=== PATIENT | male | born 1980 | race Caucasian/White ===

== ENCOUNTER 2022-08-02 10:26 | Outpatient (REF) | payer OTHER, SELFPAY ==
--- NOTE | ~2022-08-02 | XR_ITS ---
EXAMINATION: X-RAY BILATERAL FEET CLINICAL INFORMATION: Pain COMPARISON: None TECHNIQUE: Right foot 3 views. Left foot 3 views. FINDINGS: Left foot: There is a mildly displaced nonunited fracture of the proximal base of the fifth metatarsal. The appearance is suggestive of a subacute/chronic fracture. The remainder the bones appear intact. Mild degeneration in the dorsal aspect of the midfoot. Posterior calcaneal spur. No erosions. No abnormal soft tissue calcification. Right foot: No visible acute fracture or dislocation. Tarsometatarsal alignment is maintained. Mild first TMT arthritis. Toes are flexed in positioning limiting joint space evaluation. There is dorsal degenerative spurring in the midfoot, as seen on the lateral projection, including at the talonavicular, navicular-cuneiform joints. Small posterior calcaneal spur. XR/XR foot LT min 3V IMPRESSION: Left foot: Nonunited mildly displaced proximal fifth metatarsal base fracture. This could be subacute or chronic. Mild degenerative changes as above. Right foot: No acute findings. Osteoarthritis as above..
--- NOTE | ~2022-08-02 | XR_ITS ---
EXAMINATION: X-RAY BILATERAL FEET CLINICAL INFORMATION: Pain COMPARISON: None TECHNIQUE: Right foot 3 views. Left foot 3 views. FINDINGS: Left foot: There is a mildly displaced nonunited fracture of the proximal base of the fifth metatarsal. The appearance is suggestive of a subacute/chronic fracture. The remainder the bones appear intact. Mild degeneration in the dorsal aspect of the midfoot. Posterior calcaneal spur. No erosions. No abnormal soft tissue calcification. Right foot: No visible acute fracture or dislocation. Tarsometatarsal alignment is maintained. Mild first TMT arthritis. Toes are flexed in positioning limiting joint space evaluation. There is dorsal degenerative spurring in the midfoot, as seen on the lateral projection, including at the talonavicular, navicular-cuneiform joints. Small posterior calcaneal spur. XR/XR foot RT min 3V IMPRESSION: Left foot: Nonunited mildly displaced proximal fifth metatarsal base fracture. This could be subacute or chronic. Mild degenerative changes as above. Right foot: No acute findings. Osteoarthritis as above..
--- NOTE | ~2022-08-02 | XR_ITS ---
EXAMINATION: X-RAY BILATERAL WRIST CLINICAL INFORMATION: Pain COMPARISON: None TECHNIQUE: Right elbow 3 views. Left Elbow 3 views. FINDINGS: Left elbow: No fracture or dislocation. Normal alignment. Joint space is maintained. No significant effusion. Moderate olecranon enthesopathy at the triceps insertion. Mild posterior soft tissue swelling. Right elbow: No fracture or dislocation. Normal alignment. Joint spaces are maintained. No significant effusion. Moderate lobulated calcification/ossification posterior to the olecranon process in the region of the triceps tendon insertion. This could reflect enthesopathy, dystrophic changes. Differential consideration include crystalline disease. XR/XR elbow LT min 3V IMPRESSION: Left elbow: No acute osseous abnormality. Right elbow: No acute osseous abnormality. Calcification/ossification posterior to the olecranon process could reflect enthesopathy, dystrophic changes, crystalline disease
--- NOTE | ~2022-08-02 | XR_ITS ---
EXAMINATION: XR HIP, RIGHT XR HIP, LEFT CLINICAL INFORMATION: Pain COMPARISON: None TECHNIQUE: Left hip 2 views. Right hip 2 views. FINDINGS: Left Hip: Normal alignment. Hip joint space is maintained. There is bony irregularity and chronic ossifications along the lateral acetabulum, could be related to prior trauma, dystrophic changes or arthritis. There is slight flattening of the articular surface of the femoral head. Apparent increased density/sclerosis in the femoral head could be related to overlapping densities, but findings raise a possibility of avascular necrosis. No acute fracture or dislocation is seen. Visualized left hemipelvis appears intact. Right Hip: No fracture or dislocation. Hip joint space is maintained. Mild lateral acetabular hypertrophy/spurring suggesting mild arthritis. Visualized right hemipelvis is intact. XR/XR hip LT min 2V IMPRESSION: Left Hip: Findings along the lateral acetabulum could be related to prior trauma, dystrophic ossification, arthritis. Apparent increased density and femoral head articular surface flattening raises the possibility of avascular necrosis. Consider further evaluation with MRI. Right Hip: Mild arthritis.
--- NOTE | ~2022-08-02 | XR_ITS ---
EXAMINATION: X-RAY BILATERAL WRIST CLINICAL INFORMATION: Pain COMPARISON: None TECHNIQUE: Right elbow 3 views. Left Elbow 3 views. FINDINGS: Left elbow: No fracture or dislocation. Normal alignment. Joint space is maintained. No significant effusion. Moderate olecranon enthesopathy at the triceps insertion. Mild posterior soft tissue swelling. Right elbow: No fracture or dislocation. Normal alignment. Joint spaces are maintained. No significant effusion. Moderate lobulated calcification/ossification posterior to the olecranon process in the region of the triceps tendon insertion. This could reflect enthesopathy, dystrophic changes. Differential consideration include crystalline disease. XR/XR elbow RT min 3V IMPRESSION: Left elbow: No acute osseous abnormality. Right elbow: No acute osseous abnormality. Calcification/ossification posterior to the olecranon process could reflect enthesopathy, dystrophic changes, crystalline disease
--- NOTE | ~2022-08-02 | XR_ITS ---
EXAMINATION: XR LUMBOSACRAL SPINE WITH OBLIQUES CLINICAL INFORMATION: Low back pain. COMPARISON: None TECHNIQUE: AP, both oblique, and lateral views of the lumbar spine. Lateral view of the lumbosacral junction. FINDINGS: There is maintained lumbar lordosis. The vertebral heights and alignment is normal. There is loss of L3-L4 disc height. Rest of the disc heights are maintained normal. There is moderate ventral spondylosis L3-L4, L2-L3 and minimal spondylosis L1-L2 disc levels. No visible acute fracture or dislocation seen. XR/XR lumbar spine 4V min IMPRESSION: Mild degenerative disc changes L3-L4 disc levels with moderate ventral spondylosis. No visible acute fracture or dislocation seen.
--- NOTE | ~2022-08-02 | XR_ITS ---
EXAMINATION: XR SACROILIAC JOINTS CLINICAL INFORMATION: Low back pain COMPARISON: None TECHNIQUE: 4 views of the sacroiliac joints FINDINGS: Mild bilateral SI joint arthritis, right slightly more prominent as compared to the left. There is sclerosis marginating the SI joints. No definite erosive changes. No acute fractures seen. XR/XR sacroiliac joint 1-2V IMPRESSION: Mild bilateral SI joint arthritis, right greater than left.
--- NOTE | ~2022-08-02 | XR_ITS ---
EXAMINATION: XR HIP, RIGHT XR HIP, LEFT CLINICAL INFORMATION: Pain COMPARISON: None TECHNIQUE: Left hip 2 views. Right hip 2 views. FINDINGS: Left Hip: Normal alignment. Hip joint space is maintained. There is bony irregularity and chronic ossifications along the lateral acetabulum, could be related to prior trauma, dystrophic changes or arthritis. There is slight flattening of the articular surface of the femoral head. Apparent increased density/sclerosis in the femoral head could be related to overlapping densities, but findings raise a possibility of avascular necrosis. No acute fracture or dislocation is seen. Visualized left hemipelvis appears intact. Right Hip: No fracture or dislocation. Hip joint space is maintained. Mild lateral acetabular hypertrophy/spurring suggesting mild arthritis. Visualized right hemipelvis is intact. XR/XR hip RT min 2V IMPRESSION: Left Hip: Findings along the lateral acetabulum could be related to prior trauma, dystrophic ossification, arthritis. Apparent increased density and femoral head articular surface flattening raises the possibility of avascular necrosis. Consider further evaluation with MRI. Right Hip: Mild arthritis.
== END 2022-08-02 10:27 | disposition home or self-care (01) ==
LOC: HO.XRAY 10:26
PROVIDERS: PCP Internal Medicine; Visit Provider Student in an Organized Health Care Education/Training Program
DX: M25.552 Pain in left hip (principal); M25.551 Pain in right hip; M54.50 Low back pain, unspecified; M10.9 Gout, unspecified; M79.671 Pain in right foot; M79.672 Pain in left foot; M25.521 Pain in right elbow; M25.522 Pain in left elbow
CPT/HCPCS: 72110; 72200; 73080; 73502; 73630

== ENCOUNTER 2022-08-08 12:57 | Outpatient (REF) | payer OTHER, SELFPAY ==
[2022-08-08 13:21] LABS: MANUAL DIFF FLAG NO
[2022-08-08 14:00] LABS: Basophils Absolute Auto 0.1 X10*3/uL (0.0-0.2); Basophils Percent Auto 0.5 % (0-2); Eosinophils Absolute Auto 0.2 X10*3/uL (0.0-0.4); Eosinophils Percent Auto 1.8 % (0-4); Hematocrit 40.7 % (42.0-52.0); Hemoglobin 13.8 g/dl (14.0-18.0); Imm Gran Abs Auto 0.04 X10*3/uL (0.00-0.03); Imm Gran Pct Auto 0.4 % (0.0-0.4); Lymphocytes Percent Auto 19.5 % (20-40); Mean Corpuscular HGB Conc 33.9 g/dl (31.0-36.0); Mean Corpuscular Hemoglobin 33.1 pg (27.0-33.0); Mean Corpuscular Volume 97.6 fL (80.0-98.0); Mean Platelet Volume 10.1 fL (9.4-12.4); Monocytes Percent Auto 9.7 % (2-11); Neutrophils Percent Auto 68.1 % (45-73); Platelet Count 229 X10*3/uL (160-400); Red Blood Count 4.17 X10*6/uL (4.60-5.80); Red Cell Distribution Width 13.6 % (11.0-16.0); White Blood Count 10.3 X10*3/uL (4.8-10.8)
[2022-08-08 14:28] LABS: Alanine Aminotransferase 23 U/L (0-40); Albumin Level 4.3 g/dL (3.5-5.0); Alkaline Phosphatase 75 U/L (39-117); Anion Gap 19 (12-20); Aspartate Amino Transferase 18 U/L (5-37); Bilirubin Total 0.6 mg/dL (0.0-1.0); Blood Urea Nitrogen 21 mg/dL (9-16); C Reactive Protein 7.89 mg/dL (< or = 0.50); Calcium 9.5 mg/dL (8.4-10.2); Carbon Dioxide 26 mmol/L (22-29); Chloride 99 mmol/L (96-108); Estimated Glomerular Filt Rate > 60; Glucose Random 85 mg/dL (60-115); Potassium 3.6 mmol/L (3.3-5.1); Rheumatoid Factor < 15.0 IU/mL (<15.0); Sodium 140 mmol/L (135-145); Total Protein 7.2 g/dL (6.5-8.0); Uric Acid 6.8 mg/dL (3.4-7.0)
[2022-08-08 14:36] LABS: TSH reflex Free T4 1.66 uIU/mL (0.32-4.0)
[2022-08-08 14:56] LABS: Appearance Urine Clear; Color Urine Yellow; Glucose Urine UA Negative (Negative); Leukocyte Esterase Urine Trace (Negative); Nitrite Urine Negative (Negative); PH 5.5 (5.0-9.0); Specific Gravity - Urine 1.025 (1.005-1.025); UMIC TRIGGER UA YES; Urine Blood Negative (Negative); Urine Ketones Trace mg/dL (Negative); Urine Protein Negative (Neg-Trace)
[2022-08-08 14:59] LABS: Bacteria Urine None Seen (None Seen); Hyaline Casts Urine 0-2 /LPF (0-2); RBC Urine 0-2 /HPF (0-2); Squamous Epithelial Cell Urine 0-2 /HPF (0-2); WBC Urine 0-5 /HPF (0-5)
[2022-08-08 15:14] LABS: Erythrocyte Sedimentation Rate 20 MM/HR (0-15)
[2022-08-09 04:05] LABS: HBS Num1 0.49 mIU/mL (0-7.99); HBc Num1 0.04 S/CO (0.00-0.79); HBsAGNum1 0.27 S/CO (0.00-0.99); Hepatitis A Antibody IgM 0.19 Index (0-0.79); Hepatitis B Core Antibody Nonreactive (Nonreactive); Hepatitis B Surface Antigen Negative (Negative); ~HepC Num1 0.11 S/CO (0.00-0.79); ~Hepatitis A Antibody IgM Nonreactive (Nonreactive); ~Hepatitis B Surface Antibody NONREACTIVE (Nonreactive); ~Hepatitis C Antibody Nonreactive (Nonreactive)
[2022-08-11 14:32] LABS: Cyclic Citrullinated Peptide <16 UNITS
[2022-08-12 12:21] LABS: HLA B27 Negative (Negative)
== END 2022-08-08 12:58 | disposition home or self-care (01) ==
LOC: HO.LAB 12:57
PROVIDERS: PCP Internal Medicine; Visit Provider Student in an Organized Health Care Education/Training Program
DX: Z11.59 Encounter for screening for other viral diseases (principal); M54.50 Low back pain, unspecified; M25.522 Pain in left elbow; R63.5 Abnormal weight gain; M10.9 Gout, unspecified
CPT/HCPCS: 36415; 80053; 81001; 84443; 84550; 85025; 85652; 86140; 86200; 86431; 86704; 86706; 86709; 86803; 86812; 87340

== ENCOUNTER 2022-09-06 08:04 | Outpatient (REF) | payer OTHER, SELFPAY ==
--- NOTE | ~2022-09-06 | MR_ITS ---
EXAMINATION: MR HIP WITHOUT CONTRAST, LEFT CLINICAL INFORMATION: Lower back pain. Bilateral hip pain. Left leg pain and numbness. COMPARISON: Left hip radiographs dated 08/02/2022. Left hip MRI dated 11/02/2020. TECHNIQUE: MRI of the left hip was obtained using routine sequences on a high-field magnet. FINDINGS: ACETABULAR LABRUM: Redemonstration of fluid extending through the undersurface of the significantly irregular anterosuperior labrum. Corticated ossifications again noted along the lateral acetabulum with posterosuperior capsular thickening and edema. Findings are similar when compared to the prior examination. ARTICULAR CARTILAGE/BONE: Full-thickness articular cartilage loss at the superior acetabulum with underlying subchondral cystic change. Marginal osteophytes and corticated ossifications appear unchanged. Shallow acetabulum and mild flattening of the femoral head, unchanged when compared to the prior examination. No acute stress reaction, fracture, or avascular necrosis. No concerning lytic or blastic osseous lesion. MUSCLES/TENDONS: Fluid along the undersurface of the proximal left hamstring tendon, unchanged and consistent with chronic partial tearing. JOINT FLUID/BURSA: Within normal limits. INTRAPELVIC STRUCTURES: Unremarkable. 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 Corticated ossifications again noted along the lateral acetabulum, unchanged. Chronic undersurface tearing of the anterosuperior labrum, unchanged posterosuperior capsular thickening/edema, similar when compared to the prior examination. Chronic partial tearing of the proximal left hamstring tendon, unchanged.
--- NOTE | ~2022-09-06 | MR_ITS ---
EXAMINATION: MR SACROILIAC JOINTS WITHOUT CONTRAST, BILATERAL CLINICAL INFORMATION: Low back pain. COMPARISON: Radiographs 08/02/2022. TECHNIQUE: MRI without contrast is performed on the sacroiliac joints. FINDINGS: [id number] osteoarthritis of the sacroiliac joints. No definite ankylosis. No joint effusion, marrow edema, or other evidence to suggest an inflammatory sacroiliitis. Multilevel degenerative disc disease of the visualized lumbar spine with possible disc sequestration posterior to the L5 vertebral body on the left, and central stenosis at L3-L4 which could be better evaluated with a lumbar spine MRI. Abnormal left hip findings are dictated with a separate report. MR/MR sacroiliac joint EDILSON wo con IMPRESSION: 1. [id number] osteoarthritis of the sacroiliac joints. No evidence of an inflammatory sacroiliitis. 2. Multilevel degenerative disc disease of the visualized lumbar spine with possible disc sequestration posterior to the L5 vertebral body and central stenosis at L3-L4 which could be better evaluated with a lumbar spine MRI.
== END 2022-09-06 08:05 | disposition home or self-care (01) ==
LOC: HO.MRI 08:04
PROVIDERS: Visit Provider Student in an Organized Health Care Education/Training Program
DX: M54.50 Low back pain, unspecified (principal); G89.29 Other chronic pain; M25.552 Pain in left hip
CPT/HCPCS: 72195; 73721

== ENCOUNTER 2022-12-04 10:34 | Outpatient (REF) | payer OTHER, SELFPAY ==
--- NOTE | ~2022-12-04 | XR_ITS ---
EXAMINATION: XR CHEST CLINICAL INFORMATION: Fracture of one rib COMPARISON: None TECHNIQUE: 2 views of the chest were obtained. FINDINGS: The cardiomediastinal silhouette is within normal limits. The lungs are well expanded. There is no focal consolidation, edema, or effusion. No pneumothorax. No acute displaced rib fractures seen.. Thoracic spine degeneration. XR/XR chest 2V IMPRESSION: No evidence of acute pulmonary process.
--- NOTE | ~2022-12-04 | XR_ITS ---
EXAMINATION: X-RAY BILATERAL SHOULDERS CLINICAL INFORMATION: Arthropathy COMPARISON: None TECHNIQUE: Left shoulder 4 views. Right shoulder 5 views. FINDINGS: Left shoulder: Moderate acromioclavicular arthritis. Glenohumeral joint space is maintained. No fracture or dislocation. No abnormal soft tissue calcification. Right shoulder: Moderate acromioclavicular arthritis. Glenohumeral alignment and joint space is maintained. No acute fracture or dislocation. Apparent focus of mixed lucency and sclerosis in the humeral neck measuring 3 x 2.4 cm. No abnormal soft tissue calcification. XR/XR shoulder RT min 2V IMPRESSION: Left shoulder: Moderate acromioclavicular arthritis. Right shoulder: Moderate acromioclavicular arthritis. There appears be a lesion in the proximal humeral neck measuring 3 x 2.0 cm. Further evaluation with MRI without and with contrast, as clinically warranted.
--- NOTE | ~2022-12-04 | XR_ITS ---
EXAMINATION: XR RIBS, BILATERAL CLINICAL INFORMATION: Rib pain COMPARISON: None TECHNIQUE: 3 views of the bilateral ribs were obtained. FINDINGS: Lungs are clear. No consolidation, pneumothorax, or pleural effusion. The cardiomediastinal silhouette and pulmonary vasculature are normal. Osseous structures are unremarkable. Ribs are intact. No fractures are identified. Metallic BB is marked over the right anterior 10th rib XR/XR ribs BI 3V IMPRESSION: Unremarkable examination.
--- NOTE | ~2022-12-04 | XR_ITS ---
EXAMINATION: X-RAY BILATERAL SHOULDERS CLINICAL INFORMATION: Arthropathy COMPARISON: None TECHNIQUE: Left shoulder 4 views. Right shoulder 5 views. FINDINGS: Left shoulder: Moderate acromioclavicular arthritis. Glenohumeral joint space is maintained. No fracture or dislocation. No abnormal soft tissue calcification. Right shoulder: Moderate acromioclavicular arthritis. Glenohumeral alignment and joint space is maintained. No acute fracture or dislocation. Apparent focus of mixed lucency and sclerosis in the humeral neck measuring 3 x 2.4 cm. No abnormal soft tissue calcification. XR/XR shoulder LT min 2V IMPRESSION: Left shoulder: Moderate acromioclavicular arthritis. Right shoulder: Moderate acromioclavicular arthritis. There appears be a lesion in the proximal humeral neck measuring 3 x 2.0 cm. Further evaluation with MRI without and with contrast, as clinically warranted.
[2022-12-04 10:49] LABS: MANUAL DIFF FLAG NO
[2022-12-04 11:01] LABS: Basophils Absolute Auto 0.1 X10*3/uL (0.0-0.2); Basophils Percent Auto 1.1 % (0-2); Eosinophils Absolute Auto 0.1 X10*3/uL (0.0-0.4); Hematocrit 41.2 % (42.0-52.0); Hemoglobin 13.9 g/dl (14.0-18.0); Imm Gran Abs Auto 0.02 X10*3/uL (0.00-0.03); Imm Gran Pct Auto 0.3 % (0.0-0.4); Lymphocytes Absolute Auto 1.8 X10*3/uL (1.2-4.9); Lymphocytes Percent Auto 27.8 % (20-40); Mean Corpuscular HGB Conc 33.7 g/dl (31.0-36.0); Mean Corpuscular Hemoglobin 32.1 pg (27.0-33.0); Mean Corpuscular Volume 95.2 fL (80.0-98.0); Mean Platelet Volume 9.3 fL (9.4-12.4); Monocytes Absolute Auto 0.6 X10*3/uL (0.1-1.2); Monocytes Percent Auto 8.6 % (2-11); Neutrophils Percent Auto 60.2 % (45-73); Platelet Count 223 X10*3/uL (160-400); Red Blood Count 4.33 X10*6/uL (4.60-5.80); Red Cell Distribution Width 13.6 % (11.0-16.0); White Blood Count 6.6 X10*3/uL (4.8-10.8)
[2022-12-04 11:35] LABS: Alanine Aminotransferase 24 U/L (0-40); Albumin Level 4.3 g/dL (3.5-5.0); Alkaline Phosphatase 64 U/L (39-117); Anion Gap 13 (12-20); Aspartate Amino Transferase 23 U/L (5-37); Bilirubin Total 0.4 mg/dL (0.0-1.0); Blood Urea Nitrogen 12 mg/dL (9-16); Calcium 9.3 mg/dL (8.4-10.2); Carbon Dioxide 27 mmol/L (22-29); Chloride 106 mmol/L (96-108); Estimated Glomerular Filt Rate > 60; Glucose Random 108 mg/dL (60-115); Potassium 3.9 mmol/L (3.3-5.1); Sodium 142 mmol/L (135-145); Total Protein 7.1 g/dL (6.5-8.0)
== END 2022-12-04 10:35 | disposition home or self-care (01) ==
LOC: HO.LAB 10:34
PROVIDERS: PCP Internal Medicine; Visit Provider Student in an Organized Health Care Education/Training Program
DX: M10.9 Gout, unspecified (principal); S22.39XA Fracture of one rib, unspecified side, initial encounter for closed fracture; M12.811 Other specific arthropathies, not elsewhere classified, right shoulder; M12.812 Other specific arthropathies, not elsewhere classified, left shoulder; X58.XXXA Exposure to other specified factors, initial encounter; Y93.9 Activity, unspecified; Y92.89 Other specified places as the place of occurrence of the external cause; Y99.9 Unspecified external cause status
CPT/HCPCS: 36415; 71046; 71110; 73030; 80053; 82550; 84550; 85025

== ENCOUNTER → 2022-12-06 07:33 | Outpatient (BNVA) | payer OTHER, SELFPAY | PROVIDERS: Visit Provider Student in an Organized Health Care Education/Training Program | DX: M19.011 Primary osteoarthritis, right shoulder (principal); M10.9 Gout, unspecified | CPT/HCPCS: 20610; J3301 ==

== ENCOUNTER 2022-12-26 16:31 | Outpatient (REF) | payer OTHER, SELFPAY ==
--- NOTE | ~2022-12-26 | MR_ITS ---
EXAMINATION: MR SHOULDER WITHOUT AND WITH CONTRAST, RIGHT CLINICAL INFORMATION: Right shoulder pain, swelling, weakness, limited range of motion. Proximal humeral head lesion on recent radiographs. COMPARISON: Right shoulder radiographs dated 12/04/2022. TECHNIQUE: MRI of the shoulder was performed before and after the intravenous administration of 10 mL Gadavist on a high-field scanner. FINDINGS: Evaluation somewhat limited secondary to patient motion. ROTATOR CUFF: Mild supraspinatus and infraspinatus tendinosis. Articular surface partial tearing of the anterior infraspinatus tendon measuring up to 1.8 x 2.3 cm (AP x ML). Moderate subscapularis tendinosis with diffuse attenuation and irregularity of the distal tendon fibers, consistent with a near-complete full-thickness tear. There are thin tendon fibers remaining intact. Overall tearing measures up to 4.2 cm in ML dimension with retraction of the torn tendon fibers proximal to the glenohumeral articulation. No muscle atrophy or fatty infiltration. BICEPS: Mild medial subluxation of the proximal long head biceps tendon through the subscapularis tendon tear. No transverse biceps tendon tear or retraction. CORACOACROMIAL ARCH: The undersurface of the acromion is curved with no subacromial spur. Moderate to severe acromioclavicular osteoarthritis. LABRUM/CAPSULE: No displaced labral tear. GLENOHUMERAL JOINT/MARROW: Intact glenohumeral articular cartilage. Small joint effusion with minimal peripheral enhancement. No concerning lytic or blastic osseous lesion. No abnormal marrow enhancement. Findings on the prior radiographs correlate to the lesser tuberosity. No associated lytic or blastic osseous lesion. MR/MR shoulder RT wo/w con IMPRESSION: 1. Moderate subscapularis tendinosis with a near-complete, full-thickness tear of the distal tendon fibers measuring 4.2 cm in ML dimension. The torn tendon fibers are retracted proximal to the glenohumeral articulation. 2. Mild supraspinatus and infraspinatus tendinosis with articular surface partial tearing of the anterior infraspinatus tendon measuring 1.8 x 2.3 cm. 3. Mild medial subluxation of the proximal long head biceps tendon through the subscapularis tendon tear. 4. Moderate to severe acromioclavicular osteoarthritis. 5. Small glenohumeral joint effusion with minimal peripheral enhancement. No concerning lytic or blastic osseous lesion. The previous radiograph findings represent the lesser tuberosity without concerning features.
== END 2022-12-26 16:32 | disposition home or self-care (01) ==
LOC: HO.MRI 16:31
PROVIDERS: Visit Provider Student in an Organized Health Care Education/Training Program
DX: M25.511 Pain in right shoulder (principal); M89.9 Disorder of bone, unspecified
CPT/HCPCS: 73223; A9585

== ENCOUNTER 2023-08-14 13:11 | Emergency (ER) | payer OTHER, SELFPAY ==
--- NOTE | ~2023-08-14 | CT_ITS ---
EXAMINATION: CT HEAD WITHOUT CONTRAST CLINICAL INFORMATION: Head trauma COMPARISON: None available. TECHNIQUE: Contiguous axial imaging was performed from the skull base to vertex without intravenous administration of contrast. This CT examination was performed using dose optimization techniques as appropriate, variously including the following: *Automated exposure control *Adjustment of mA and/or kV according to patient size (this includes techniques or standardized protocols for targeted exams where dose is matched to indication/reason for exam; i.e. extremities or head) *Use of iterative reconstruction technique DLP: 913 mGy-cm FINDINGS: There is no evidence of an extra-axial collection. There is no evidence of intra-axial or extra-axial hemorrhage. The ventricles and extra-axial CSF spaces are appropriate. [place]-white matter differentiation is normal. No mass, mass effect or infarct. No skull fracture. Paranasal sinuses mastoid air cells and middle ears are clear. CT/CT head/brain wo IV con IMPRESSION: Unremarkable exam.
--- NOTE | ~2023-08-14 | XR_ITS ---
EXAMINATION: 1. RADIOGRAPHS RIGHT RIBS 2. RADIOGRAPHS RIGHT ELBOW 3. RADIOGRAPHS RIGHT FOREARM CLINICAL INFORMATION: Diffuse pain after trauma. Laceration. COMPARISON: Bilateral rib x-rays 12/04/2022 and right elbow x-ray 08/02/2022 TECHNIQUE: 3 views of the right RIBS, 3 views of the right elbow and 2 views of the right forearm were obtained. FINDINGS: Right RIBS: Cardiac silhouette is at the upper limits of normal in size. Lungs are mildly hypoinflated. Small calcified granuloma the right upper lung. No right-sided rib fracture. Right elbow/forearm: No fracture or dislocation of the right elbow/right radius/ulna. No right elbow joint effusion. Prominent dystrophic calcifications again noted posterior to the olecranon process which appears slightly increased in prominence from July 2022 imaging. There is also a well demarcated void now present between the dystrophic calcifications and the olecranon process which was not present previously. There is overlying soft tissue irregularity suggesting laceration. There is associated soft tissue swelling. A few punctate foci of air within the subcutaneous tissues. No radiopaque foreign bodies. XR/XR forearm RT 2V IMPRESSION: 1. No right-sided rib fracture. 2. Soft tissue swelling and suspected laceration overlying the olecranon process. No radiopaque foreign bodies. 3. Prominent dystrophic calcifications again noted posterior to the olecranon process which appears slightly increased in prominence from July 2022 imaging. There is also a well demarcated void now present between the dystrophic calcifications and the olecranon process which was not present previously. Findings may represent acute fracture of dystrophic calcification/enthesophyte off the olecranon process.
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
--- NOTE | ~2023-08-14 | US_ITS ---
EXAMINATION: US VENOUS WITH DOPPLER UPPER EXTREMITY, RIGHT CLINICAL INFORMATION: Swelling. COMPARISON: None available. TECHNIQUE: Ultrasound of the upper extremity is performed using compression sonography and color and pulse Doppler flow with assessment of augmentation of flow. There is also imaging and Doppler assessment of the jugular and subclavian veins. Spectral analysis with color-flow imaging is performed. FINDINGS: Respiratory variation, normal compression, and augmented flow are noted throughout the upper extremity including the axillary, brachial, cubital, and radial and ulnar veins. There is normal flow in the internal jugular and subclavian veins. There is no visible deep or superficial thrombophlebitis. If the patient's symptoms progress, a followup ultrasound in 5 -7 days might be of value to exclude proximal propagation from a nonvisualized distal arm vein. US/US venous duplex UE RT IMPRESSION: No DVT demonstrated in the right upper extremity
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
--- NOTE | ~2023-08-14 | XR_ITS ---
EXAMINATION: 1. RADIOGRAPHS RIGHT RIBS 2. RADIOGRAPHS RIGHT ELBOW 3. RADIOGRAPHS RIGHT FOREARM CLINICAL INFORMATION: Diffuse pain after trauma. Laceration. COMPARISON: Bilateral rib x-rays 12/04/2022 and right elbow x-ray 08/02/2022 TECHNIQUE: 3 views of the right RIBS, 3 views of the right elbow and 2 views of the right forearm were obtained. FINDINGS: Right RIBS: Cardiac silhouette is at the upper limits of normal in size. Lungs are mildly hypoinflated. Small calcified granuloma the right upper lung. No right-sided rib fracture. Right elbow/forearm: No fracture or dislocation of the right elbow/right radius/ulna. No right elbow joint effusion. Prominent dystrophic calcifications again noted posterior to the olecranon process which appears slightly increased in prominence from July 2022 imaging. There is also a well demarcated void now present between the dystrophic calcifications and the olecranon process which was not present previously. There is overlying soft tissue irregularity suggesting laceration. There is associated soft tissue swelling. A few punctate foci of air within the subcutaneous tissues. No radiopaque foreign bodies. XR/XR elbow RT 2V IMPRESSION: 1. No right-sided rib fracture. 2. Soft tissue swelling and suspected laceration overlying the olecranon process. No radiopaque foreign bodies. 3. Prominent dystrophic calcifications again noted posterior to the olecranon process which appears slightly increased in prominence from July 2022 imaging. There is also a well demarcated void now present between the dystrophic calcifications and the olecranon process which was not present previously. Findings may represent acute fracture of dystrophic calcification/enthesophyte off the olecranon process.
[2023-08-14 14:06] VITALS: BP 165/91; PULSE 54; RESP 18; TEMP 37.1; O2SAT 98; BMI 38.8
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
[2023-08-14 20:20] VITALS: BP 170/99; PULSE 60; RESP 18; TEMP 36.9; O2SAT 100
--- NOTE | 2023-08-14 20:25 | PC.NURSE ---
pt declined sling for right arm- educated and asked multiple times if needs one- pt states he has one at home and is very knowledgable about use- RN reviewed sling use with demo of real sling in person. pt confirmed understanding. denies numbness/tingling to right arm/hand with +ROM. no red streak. no drainage noted at this time. afebrile. htn- pt reports has not taken his 2 bp meds today and is typically 160/170s sbp w/o them. denies cp/dizziness/respiratory distress. talks well. aox4. calm, coop.
== END 2023-08-14 20:32 | disposition home or self-care (01) ==
PROVIDERS: Emergency Provider Emergency Medicine; PCP Internal Medicine
DX: S42.401A Unspecified fracture of lower end of right humerus, initial encounter for closed fracture (principal); S51.011A Laceration without foreign body of right elbow, initial encounter; Y92.810 Car as the place of occurrence of the external cause; S00.12XA Contusion of left eyelid and periocular area, initial encounter; S20.211A Contusion of right front wall of thorax, initial encounter; Y04.2XXA Assault by strike against or bumped into by another person, initial encounter; M79.601 Pain in right arm; Z87.891 Personal history of nicotine dependence; W22.8XXA Striking against or struck by other objects, initial encounter; Y93.89 Activity, other specified; Y99.9 Unspecified external cause status; Z79.899 Other long term (current) drug therapy
CPT/HCPCS: 70450; 70486; 71101; 73070; 73090; 93971; 99284

== ENCOUNTER 2023-10-04 08:49 | Outpatient (AMB) | payer OTHER, SELFPAY ==
--- NOTE | 2023-10-04 08:51 | A.OFFVIS_ITS ---
Intake Vital Signs 10/04/23 08:52 Height 5 ft 11 in Weight 278 lb 14.156 oz BMI 38.9 BP 152/88 H Blood Pressure Location Rt brachial Position Sitting Pulse 58 Pulse Source Pulse Oximeter Temp 97.4 F Temp Source Skin Pulse Oximetry (%) 100 Intake Visit Reasons: Gout Intake Note: Pt presents today for gout follow up. Has not completed labs. Admits lots flare ups since last visit and is requesting MD to complete FMLA paperwork. Reports Allopurinol 300mg daily, does not have any colchicine and is taking prednisone 5mg daily. At last visit, his right shoulder was injected and was referred to ortho for further evaluation. They have not been able to reach pt to schedule a consult x3. Pt would like to see outside ortho, reports [facility] appt in October Studio Producer Required: No Accompanied by: Self / Same As Patient Allergies hydrochlorothiazide Allergy (Intermediate, Verified 10/04/23 08:55) dizziness,rapid heart beat Medication List - Last Reconciled 10/04/23 by Emily Covarrubias MD allopurinol 300 mg PO DAILY colchicine (gout) 0.6 mg PO DAILY ibuprofen 800 mg PO Q6H PRN lisinopril 40 mg PO DAILY metoprolol succinate ER 100 mg PO DAILY omeprazole 20 mg PO DAILY PRN prednisone 5 mg PO DAILY NS prednisone for gout flare ups: 3 tabs daily for 3 days, then 2 daily for 3 days then one daily for 3 days HPI HPI Comments History of Present Illness Details This is a 42-year-old male with polyarticular gout presents for follow-up. Patient was last seen 11/2022. He missed multiple follow-up visits. Patient ran out of the colchicine 2 months ago. He has been taking allopurinol 300 mg daily and prednisone 5 mg daily. States that he has been getting multiple gout flare-ups. At least once a month. Usually affecting his toes, ankles, elbows and wrists. States that if he takes the prednisone as soon as he starts having a flare-up it will be controlled in 2-3 days. If he is late, the flare can last 2 weeks. He has an appointment with [facility] next month to evaluate his right shoulder PFSH Medical History Rupture of left quadriceps muscle Hypertension Social History Household Members Other:: lives alone Housing: House Are you a primary director of managed care to a significant other at home: No Do you presently have visiting nurse or other home services: No 75 years or older and lives alone: No Alcohol intake: current Alcohol intake frequency: a few times a month Alcohol type: beer Patient Tobacco Use Status: Former Tobacco user Years Smoked: chews tobacco e-Cigarette/Vaping Use: Never Used service: No Current occupational status: employed 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 Review of Systems [facility] [place] Reports arthralgias, Reports joint swelling, Reports limited range of motion and Reports stiffness Physical Exam Vital Signs: Last Vital Signs Temp 97.4 F 10/04/23 08:52 Pulse 58 10/04/23 08:52 BP 152/88 H 10/04/23 08:52 Pulse Ox 100 10/04/23 08:52 BMI result Body Mass Index 38.9 Const General: cooperative and no acute distress Nutritional Appearance: obese morbidly obese Orientation/consciousness: patient oriented x3 Limitations: no limitations HEENT Head: Yes normocephalic and Yes atraumatic Mouth: moist mucous membranes Resp Effort & Inspection: normal respiratory effort and able to speak in complete sentences Skin Other: acne lower back Neuro General: patient oriented x3 Extrem Other: Stiffness of right shoulder, some painful range of motion. Bilateral ankle warmth and tenderness Bilateral 1st MTP tenderness Assessment & Plan Assessment & Plan (1) Polyarticular gout: Code(s): M10.9 - Gout, unspecified Plan: 43-year-old male with gout presents for follow-up. Patient missed multiple follow-up appointments since last visit. He ran out of the colchicine. Check labs today. Restart colchicine 0.6 mg daily. Continue prednisone 5 mg daily. Continue allopurinol 300 mg daily and increase to 400 mg daily in 2 weeks Prednisone taper as needed for flare-ups Follow-up in 3 months (2) Arthritis of right shoulder region: Code(s): M19.011 - Primary osteoarthritis, right shoulder Plan: Right shoulder MRI shows torn rotator cuff and significant shoulder arthritis. Patient has an appointment with [facility] next month Plan I spent 40 minutes reviewing patient's chart, evaluating patient, ordering diagnostic workup, counseling patient and documenting in the chart Orders: Orders Complete Blood Count Auto Diff Today M10.9 - Gout, unspecified Comprehensive Met. Panel Today M10.9 - Gout, unspecified C Reactive Protein Today M10.9 - Gout, unspecified Uric Acid Today M10.9 - Gout, unspecified Erythrocyte Sedimentation Rate Today M10.9 - Gout, unspecified Medications: Changed From prednisone 3 tab daily for 3 days, then 2 daily for 3 days then one daily for 3 days 18 tabs 0RF To prednisone for gout flare ups: 3 tabs daily for 3 days, then 2 daily for 3 days then one daily for 3 days 100 tabs 0RF Refilled prednisone 5 mg PO DAILY 90 tabs 0RF NS M10.9 - Gout, unspecified allopurinol 300 mg PO DAILY 90 tabs 0RF colchicine (gout) 0.6 mg PO DAILY 90 caps 1RF Coding Level of Care Code Est Pt Level 4 (69042) Diagnoses Polyarticular gout M10.9 Arthritis of right shoulder region M19.011
[2023-10-04 08:52] VITALS: BP 152/88; PULSE 58; TEMP 36.3; O2SAT 100; BMI 38.9
== END 2023-10-04 09:20 | disposition home or self-care (01) ==
PROVIDERS: PCP Internal Medicine; Visit Provider Student in an Organized Health Care Education/Training Program
DX: M10.9 Gout, unspecified (principal); M19.011 Primary osteoarthritis, right shoulder
CPT/HCPCS: 99214

== ENCOUNTER → 2023-10-04 08:49 | Outpatient (BNVA) | payer OTHER, SELFPAY | PROVIDERS: PCP Internal Medicine; Visit Provider Student in an Organized Health Care Education/Training Program ==

== ENCOUNTER 2023-10-04 09:29 | Outpatient (REF) | payer OTHER, SELFPAY ==
[2023-10-04 10:52] LABS: MANUAL DIFF FLAG NO
[2023-10-04 11:00] LABS: Basophils Absolute Auto 0.1 X10*3/uL (0.0-0.2); Basophils Percent Auto 0.8 % (0-2); Eosinophils Absolute Auto 0.2 X10*3/uL (0.0-0.4); Eosinophils Percent Auto 2.7 % (0-4); Hemoglobin 11.5 g/dl (14.0-18.0); Imm Gran Abs Auto 0.01 X10*3/uL (0.00-0.03); Imm Gran Pct Auto 0.2 % (0.0-0.4); Lymphocytes Absolute Auto 2.3 X10*3/uL (1.2-4.9); Lymphocytes Percent Auto 36.6 % (20-40); Mean Corpuscular HGB Conc 33.8 g/dl (31.0-36.0); Mean Corpuscular Hemoglobin 32.3 pg (27.0-33.0); Mean Corpuscular Volume 95.5 fL (80.0-98.0); Mean Platelet Volume 9.5 fL (9.4-12.4); Monocytes Absolute Auto 0.6 X10*3/uL (0.1-1.2); Monocytes Percent Auto 9.3 % (2-11); Neutrophils Absolute Auto 3.2 x10*3/uL (2.0-8.3); Neutrophils Percent Auto 50.4 % (45-73); Platelet Count 222 X10*3/uL (160-400); Red Blood Count 3.56 X10*6/uL (4.60-5.80); Red Cell Distribution Width 13.9 % (11.0-16.0); White Blood Count 6.3 X10*3/uL (4.8-10.8)
[2023-10-04 11:10] LABS: Alanine Aminotransferase 17 U/L (0-40); Albumin Level 3.9 g/dL (3.5-5.0); Alkaline Phosphatase 81 U/L (39-117); Anion Gap 10 (12-20); Aspartate Amino Transferase 17 U/L (5-37); Bilirubin Total 0.3 mg/dL (0.0-1.0); Blood Urea Nitrogen 23 mg/dL (9-16); C Reactive Protein 0.25 mg/dL (< or = 0.50); Calcium 8.9 mg/dL (8.4-10.2); Carbon Dioxide 31 mmol/L (22-29); Chloride 105 mmol/L (96-108); Estimated Glomerular Filt Rate > 60; Glucose Random 93 mg/dL (60-115); Potassium 3.1 mmol/L (3.3-5.1); Sodium 143 mmol/L (135-145); Total Protein 6.6 g/dL (6.5-8.0)
[2023-10-04 11:39] LABS: Erythrocyte Sedimentation Rate 14 MM/HR (0-15)
== END 2023-10-04 09:30 | disposition home or self-care (01) ==
LOC: HO.10HDL 09:29
PROVIDERS: Visit Provider Student in an Organized Health Care Education/Training Program
DX: M10.9 Gout, unspecified (principal)
CPT/HCPCS: 36415; 80053; 84550; 85025; 85652; 86140

== ENCOUNTER 2024-01-18 11:02 | Outpatient (REF) | payer OTHER, SELFPAY ==
[2024-01-18 11:14] LABS: MANUAL DIFF FLAG NO
[2024-01-18 11:48] LABS: Basophils Percent Auto 0.7 % (0-2); Eosinophils Absolute Auto 0.1 X10*3/uL (0.0-0.4); Eosinophils Percent Auto 1.6 % (0-4); Estimated Average Glucose 85 mg/dL; Hematocrit 40.2 % (42.0-52.0); Hemoglobin 13.9 g/dl (14.0-18.0); Hemoglobin A1c % 4.6 % (<6.0); Imm Gran Abs Auto 0.01 X10*3/uL (0.00-0.03); Imm Gran Pct Auto 0.2 % (0.0-0.4); Lymphocytes Absolute Auto 1.5 X10*3/uL (1.2-4.9); Lymphocytes Percent Auto 34.5 % (20-40); Mean Corpuscular HGB Conc 34.6 g/dl (31.0-36.0); Mean Corpuscular Hemoglobin 33.3 pg (27.0-33.0); Mean Corpuscular Volume 96.4 fL (80.0-98.0); Mean Platelet Volume 9.6 fL (9.4-12.4); Monocytes Absolute Auto 0.7 X10*3/uL (0.1-1.2); Monocytes Percent Auto 15.5 % (2-11); Neutrophils Absolute Auto 2.1 x10*3/uL (2.0-8.3); Neutrophils Percent Auto 47.5 % (45-73); Platelet Count 220 X10*3/uL (160-400); Red Blood Count 4.17 X10*6/uL (4.60-5.80); Red Cell Distribution Width 14.6 % (11.0-16.0); White Blood Count 4.4 X10*3/uL (4.8-10.8)
[2024-01-18 12:23] LABS: Alanine Aminotransferase 23 U/L (0-40); Albumin Level 4.1 g/dL (3.5-5.0); Alkaline Phosphatase 89 U/L (39-117); Aspartate Amino Transferase 33 U/L (5-37); Bilirubin Total 1.9 mg/dL (0.0-1.0); Blood Urea Nitrogen 11 mg/dL (9-16); C Reactive Protein 0.11 mg/dL (< or = 0.50); Calcium 8.4 mg/dL (8.4-10.2); Estimated Glomerular Filt Rate > 60; Glucose Random 106 mg/dL (60-115); Total Protein 6.8 g/dL (6.5-8.0); Uric Acid 6.9 mg/dL (3.4-7.0)
[2024-01-18 12:29] LABS: Erythrocyte Sedimentation Rate 2 MM/HR (0-15)
[2024-01-18 12:30] LABS: Anion Gap 13 (12-20); Carbon Dioxide 33 mmol/L (22-29); Chloride 98 mmol/L (96-108); Potassium 2.6 mmol/L (3.3-5.1); Sodium 141 mmol/L (135-145)
== END 2024-01-18 11:03 | disposition home or self-care (01) ==
LOC: HO.LAB 11:02
PROVIDERS: PCP Internal Medicine; Visit Provider Student in an Organized Health Care Education/Training Program
DX: M1A.09X0 Idiopathic chronic gout, multiple sites, without tophus (tophi) (principal); Z13.1 Encounter for screening for diabetes mellitus
CPT/HCPCS: 36415; 80053; 83036; 84550; 85025; 85652; 86140

== ENCOUNTER 2024-01-21 13:47 | Outpatient (AMB) | payer OTHER, SELFPAY ==
[2024-01-21 13:50] VITALS: BP 164/100; PULSE 85; TEMP 35.8; O2SAT 98; BMI 37.0
--- NOTE | 2024-01-21 13:50 | A.OFFVIS_ITS ---
Intake Vital Signs 3 01/21/24 13:50 Height 5 ft 11 in Weight 265 lb 10.512 oz BMI 37.0 BP 164/100 H Blood Pressure Location Rt brachial Position Sitting Pulse 85 Pulse Source Pulse Oximeter Temp 96.5 F L Temp Source Skin Pulse Oximetry (%) 98 Oxygen Delivery Method Room Air Intake Visit Reasons: Gout Intake Note: Patient last seen 10/04/23 presents today for follow up and test results. Reports having a cold, currently taking Mucinex; feeling shaky. Farm Appraiser Required: No Accompanied by: Worker's Comp Local Coordinator Allergies hydrochlorothiazide Allergy (Intermediate, Verified 01/21/24 13:53) dizziness,rapid heart beat Medication List - Last Reconciled 01/21/24 by Emily Covarrubias MD allopurinol 300 mg PO DAILY colchicine 1.2 mg PO DAILY ibuprofen 800 mg (4 x 200 mg) PO Q6H PRN lisinopril 40 mg PO DAILY metoprolol succinate ER 100 mg PO DAILY omeprazole 20 mg PO DAILY PRN HPI HPI Comments 2 History of Present Illness0 Details This is a 43-year-old male with polyarticular gout who presents for follow-up. 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 Patient stated that he ruptured his right biceps at work last month, he had an MRI and was told by orthopedic surgeon Dr. Elam that he would need to stay off prednisone in order to go through with surgery. Patient was taking prednisone 5 mg daily as prophylaxis and would take a prednisone taper as needed about once a week for gout flare-ups. Patient stopped the prednisone around that time and has been having a serious flare affecting both feet radiating up all the way into his back. He was also taking colchicine 1 tab daily. He has been compliant with allopurinol 300 mg daily. I spoke with patient last week and advised him to stay off the prednisone, increase colchicine to 2 tabs daily and can continue with ibuprofen 800 mg 3 to 4 times a day. He stated that the swelling of his feet has improved. Over the last 1-2 days he has been having symptoms of an upper respiratory tract infection as well as some diarrhea. And shakiness. He also feels that he ruptured his left biceps. He was evaluated by his orthopedic surgeon and left arm MRI was ordered [facility] Medical History (Updated 01/21/24 @ 16:45 by Emily Covarrubias MD) Rupture of left quadriceps muscle Hypertension Social History Household Members Other:: lives alone Housing: House Are you a primary aged or disabled care worker to a significant other at home: No Do you presently have visiting nurse or other home services: No 75 years or older and lives alone: No Alcohol intake: current Alcohol intake frequency: a few times a month Alcohol type: beer Patient Tobacco Use Status: Former Tobacco user Years Smoked: chews tobacco e-Cigarette/Vaping Use: Never Used service: No Current occupational status: employed 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 Review of Systems Const Reports weakness ENT Reports nasal congestion GI Reports diarrhea Musc Reports arthralgias and Reports joint swelling Neuro Reports weakness Physical Exam Vital Signs: Last Vital Signs Temp 96.5 F L 01/21/24 13:50 Pulse 85 01/21/24 13:50 BP 164/100 H 01/21/24 13:50 Pulse Ox 98 01/21/24 13:50 Oxygen Delivery Method Room Air 01/21/24 13:50 BMI result Body Mass Index 37.0 Const General: cooperative and no acute distress Nutritional Appearance: obese morbidly obese Orientation/consciousness: patient oriented x3 Limitations: no limitations HEENT Head: Yes normocephalic and Yes atraumatic Resp Effort & Inspection: normal respiratory effort and able to speak in complete sentences Auscultation: clear to auscultation bilaterally Neuro General: patient oriented x3 Extrem Other: 01/21/2024 2/ 01/16/2024 Swelling of his feet has come down over the last few days. Continues to have some tenderness to palpation on both bunions. Jd sign both arms. Some mild bruising on the flexor aspect of right arm Assessment & Plan Assessment & Plan (1) Polyarticular gout: Code(s): M10.9 - Gout, unspecified Plan: 43-year-old male with gout presents for follow-up. Patient was doing reasonably well on allopurinol 300 mg daily, prednisone 5 mg daily and colchicine 0.6 mg daily for prophylaxis. Prednisone tapers as needed , he would have a flare-up about once a month. Patent with prednisone taper. Patient ruptured his right biceps tendon last month and was evaluated by Orthopedics and advised to hold prednisone order to be able to proceed with surgery, recently he is also suspected to have torn his left biceps. Patient has been taking colchicine 1.2 mg daily and ibuprofen 800 mg 3 to 4 times a day for current flare with some improvement however he continues to have recurrent flare-ups and he needs to stay off prednisone in order to be able to proceed with biceps tendon repair. Given ongoing gout flare up despite full dose colchicine, full-dose ibuprofen and inability to use prednisone, I would like to add canakinumab injection to his current regimen to treat current flare so that patient would be able to proceed with surgery Will start prior authorization for canakinumab injections His uric acid level is 6.9, which is still not at target, we will need to increase allopurinol dose however I would like to controlled current flare 1st Continue with allopurinol 300 mg daily, colchicine 1.2 mg daily and ibuprofen Follow-up in 1 month [facility] paperwork completed (2) Rupture of right biceps tendon: Code(s): S46.211A - Strain of muscle, fascia and tendon of other parts of biceps, right arm, initial encounter Qualifiers: Encounter type: initial encounter Qualified Code(s): S46.211A - Strain of muscle, fascia and tendon of other parts of biceps, right arm, initial encounter Plan: As above Follow-up with orthopedics (3) Hypokalemia: Code(s): E87.6 - Hypokalemia Plan: Follow-up with PCP Plan I spent 47 minutes reviewing patient's chart, evaluating patient, ordering diagnostic workup, counseling patient and documenting in the chart Coding Level of Care Code Est Pt Level 5 (91272) Diagnoses Polyarticular gout M10.9 Rupture of right biceps tendon, initial encounter S46.211A Encounter type: initial encounter Hypokalemia E87.6
== END 2024-01-21 14:35 | disposition home or self-care (01) ==
PROVIDERS: PCP Internal Medicine; Visit Provider Student in an Organized Health Care Education/Training Program
DX: M10.9 Gout, unspecified (principal); S46.211A Strain of muscle, fascia and tendon of other parts of biceps, right arm, initial encounter; E87.6 Hypokalemia
CPT/HCPCS: 99215

== ENCOUNTER → 2024-01-21 13:47 | Outpatient (BNVA) | payer OTHER, SELFPAY | PROVIDERS: PCP Internal Medicine; Visit Provider Student in an Organized Health Care Education/Training Program ==

== ENCOUNTER 2024-02-06 10:19 | Outpatient (AMB) | payer OTHER, SELFPAY ==
[2024-02-06 11:51] VITALS: BP 155/113; PULSE 80; RESP 17; O2SAT 98
--- NOTE | 2024-02-06 11:51 | AM.OFFVISNUR ---
Intake Vital Signs 02/06/24 11:51 BP 155/113 H Blood Pressure Location Lt brachial Respiration 17 Pulse 80 Pulse Source Pulse Oximeter Pulse Oximetry (%) 98 Oxygen Delivery Method Room Air Intake Visit Reasons: Gout/ilaris Employee Services Manager Required: No Allergies hydrochlorothiazide Allergy (Intermediate, Verified 01/21/24 13:53) dizziness,rapid heart beat Nursing Note Patient here for first Ilaris injection. Patient was given pertinent information regarding Ilaris and he had no questions at this time. Denied any allergies. Patient signed consent to administer Ilaris injection. Patient was given Ilaris injection on upper right arm. He tolerated injection well. Office Meds canakinumab (PF) 150 mg/mL subcutaneous solution Performing Provider: Emily Covarrubias MD Performing Location: [facility] Administered by: Alejandra Brennan RN on 02/06/24 11:22 Dose Route Admin Location Dispensed Lot Number Expiration Date NDC Ship Boss 150 mg subcut Right arm 1 mL [id number] 07/26/25 3624-1161-78 [facility] Coding Level of Care Code Procedure Only Assessment & Plan Assessment & Plan Orders: Orders AMB Canakinumab Injection Patient Supplied (NC) 02/06/24 M10.9 - Gout, unspecified
== END 2024-02-06 10:47 | disposition home or self-care (01) ==
PROVIDERS: PCP Internal Medicine; Visit Provider Student in an Organized Health Care Education/Training Program
DX: M10.9 Gout, unspecified (principal)

== ENCOUNTER → 2024-02-06 10:19 | Outpatient (BNVA) | payer OTHER, SELFPAY | PROVIDERS: PCP Internal Medicine | DX: M10.9 Gout, unspecified (principal) | CPT/HCPCS: 96372 ==

== ENCOUNTER 2024-02-25 11:59 | Outpatient (REF) | payer OTHER, SELFPAY ==
[2024-02-25 12:13] LABS: MANUAL DIFF FLAG NO
[2024-02-25 12:38] LABS: Basophils Absolute Auto 0.1 X10*3/uL (0.0-0.2); Basophils Percent Auto 1.2 % (0-2); Eosinophils Absolute Auto 0.2 X10*3/uL (0.0-0.4); Eosinophils Percent Auto 2.3 % (0-4); Hematocrit 37.9 % (42.0-52.0); Hemoglobin 13.3 g/dl (14.0-18.0); Imm Gran Abs Auto 0.01 X10*3/uL (0.00-0.03); Imm Gran Pct Auto 0.2 % (0.0-0.4); Lymphocytes Absolute Auto 2.2 X10*3/uL (1.2-4.9); Lymphocytes Percent Auto 34.5 % (20-40); Mean Corpuscular HGB Conc 35.1 g/dl (31.0-36.0); Mean Corpuscular Hemoglobin 34.1 pg (27.0-33.0); Mean Corpuscular Volume 97.2 fL (80.0-98.0); Mean Platelet Volume 9.8 fL (9.4-12.4); Monocytes Absolute Auto 0.7 X10*3/uL (0.1-1.2); Monocytes Percent Auto 11.2 % (2-11); Neutrophils Absolute Auto 3.3 x10*3/uL (2.0-8.3); Neutrophils Percent Auto 50.6 % (45-73); Platelet Count 231 X10*3/uL (160-400); Red Cell Distribution Width 14.7 % (11.0-16.0); White Blood Count 6.5 X10*3/uL (4.8-10.8)
[2024-02-25 12:47] LABS: Estimated Average Glucose 82 mg/dL; Hemoglobin A1c % 4.5 % (<6.0)
[2024-02-25 12:58] LABS: Alanine Aminotransferase 15 U/L (0-40); Albumin Level 4.1 g/dL (3.5-5.0); Alkaline Phosphatase 62 U/L (39-117); Anion Gap 12 (12-20); Aspartate Amino Transferase 18 U/L (5-37); Bilirubin Total 0.6 mg/dL (0.0-1.0); Blood Urea Nitrogen 17 mg/dL (9-16); C Reactive Protein 0.23 mg/dL (< or = 0.50); Calcium 9.1 mg/dL (8.4-10.2); Carbon Dioxide 27 mmol/L (22-29); Chloride 107 mmol/L (96-108); Estimated Glomerular Filt Rate > 60; Glucose Random 98 mg/dL (60-115); Sodium 143 mmol/L (135-145); Total Protein 7.1 g/dL (6.5-8.0)
[2024-02-25 13:15] LABS: Erythrocyte Sedimentation Rate 7 MM/HR (0-15)
[2024-02-26 08:29] LABS: HBc Num1 0.06 S/CO (0.00-0.79); Hepatitis B Core Antibody Nonreactive (Nonreactive); Hepatitis B Surface Antigen Negative (Negative); ~Hepatitis A Antibody IgM Nonreactive (Nonreactive); ~Hepatitis B Surface Antibody NONREACTIVE (Nonreactive); ~Hepatitis C Antibody Nonreactive (Nonreactive)
[2024-02-27 22:53] LABS: TS Negative Control Passed; TS Panel A 1; TS Panel B 0; TS Positive Control Passed; TSpotTB Negative (Negative)
== END 2024-02-25 12:00 | disposition home or self-care (01) ==
LOC: HO.LAB 11:59
PROVIDERS: PCP Internal Medicine; Visit Provider Student in an Organized Health Care Education/Training Program
DX: Z11.7 Encounter for testing for latent tuberculosis infection (principal); Z13.1 Encounter for screening for diabetes mellitus; Z11.59 Encounter for screening for other viral diseases; M1A.09X0 Idiopathic chronic gout, multiple sites, without tophus (tophi); Z72.89 Other problems related to lifestyle
CPT/HCPCS: 36415; 80053; 83036; 84550; 85025; 85652; 86140; 86481; 86704; 86706; 86709; 86803; 87340

== ENCOUNTER 2024-03-19 08:40 | Outpatient (AMB) | payer OTHER, SELFPAY ==
--- NOTE | 2024-03-19 08:42 | MHC.OFFVIS ---
Vital Signs 03/19/24 08:43 Weight 271 lb 13.279 oz BP 170/100 H Blood Pressure Location Rt brachial Position Sitting Respiration 18 Pulse 73 Pulse Source Pulse Oximeter Temp 98.4 F Temp Source Tympanic Pulse Oximetry (%) 99 Oxygen Delivery Method Room Air Intake Visit Reasons: Gout/Ilaris Door Framer Required: No Allergies hydrochlorothiazide Allergy (Intermediate, Verified 03/19/24 08:48) dizziness,rapid heart beat Medication List - Last Reconciled 03/19/24 by Emily Covarrubias MD allopurinol 300 mg PO DAILY colchicine 1.2 mg PO DAILY ibuprofen 800 mg (4 x 200 mg) PO Q6H PRN Ilaris (PF) (canakinumab (PF)) 150 mg subcut Q4W NS lisinopril 40 mg PO DAILY metoprolol succinate ER 100 mg PO DAILY omeprazole 20 mg PO DAILY PRN potassium chloride ER 10 mEq PO QAM HPI Comments Details: This is a 43-year-old male with polyarticular gout who presents for follow-up. Patient received his 1st Ilaris injection about 5 weeks ago. States that he is feeling much better overall much less frequent gout flares. Gets intermittent short-lived mild flare-ups. Has not use prednisone for more than a month. Compliant with allopurinol 300 mg daily and colchicine 1.2 mg daily. Has been going to PT. he has a follow-up appointment soon with his surgeon and believes that surgery will not be done Patient stated that he ruptured his right biceps at work last month, he had an MRI and was told by orthopedic surgeon Dr. Elam that he would need to stay off prednisone in order to go through with surgery. Patient was taking prednisone 5 mg daily as prophylaxis and would take a prednisone taper as needed about once a week for gout flare-ups. Patient stopped the prednisone around that time and has been having a serious flare affecting both feet radiating up all the way into his back. He was also taking colchicine 1 tab daily. He has been compliant with allopurinol 300 mg daily. I spoke with patient last week and advised him to stay off the prednisone, increase colchicine to 2 tabs daily and can continue with ibuprofen 800 mg 3 to 4 times a day. He stated that the swelling of his feet has improved. Over the last 1-2 days he has been having symptoms of an upper respiratory tract infection as well as some diarrhea. And shakiness. He also feels that he ruptured his left biceps. He was evaluated by his orthopedic surgeon and left arm MRI was ordered [facility] Medical History (Updated 03/19/24 @ 09:20 by Emily Covarrubias MD) Rotator cuff tear, right Rupture of right biceps tendon Rupture of left quadriceps muscle Hypertension Social History Household Members Other:: lives alone Housing: House Are you a primary palliative care nurse to a significant other at home: No Do you presently have visiting nurse or other home services: No 75 years or older and lives alone: No Alcohol intake: current Alcohol intake frequency: a few times a month Alcohol type: beer Patient Tobacco Use Status: Former Tobacco user Years Smoked: chews tobacco e-Cigarette/Vaping Use: Never Used service: No Current occupational status: employed 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 Review of Systems Const Reports weakness Musc Reports arthralgias and Reports joint swelling Neuro Reports weakness Physical Exam Vital Signs: Last Vital Signs Temp 98.4 F 03/19/24 08:43 Pulse 73 03/19/24 08:43 Resp 18 03/19/24 08:43 BP 170/100 H 03/19/24 08:43 Pulse Ox 99 03/19/24 08:43 Oxygen Delivery Method Room Air 03/19/24 08:43 Const General: cooperative and no acute distress Nutritional Appearance: obese morbidly obese Orientation/consciousness: patient oriented x3 Limitations: no limitations HEENT Head: Yes normocephalic and Yes atraumatic Resp Effort & Inspection: normal respiratory effort and able to speak in complete sentences Skin General skin exam: no rashes or lesions noted Neuro General: patient oriented x3 Extrem Other: No active synovitis today Bilateral lower limb edema some varicosities. Mild lateral malleolus tenderness Assessment & Plan Assessment & Plan (1) Polyarticular gout: Code(s): M10.9 - Gout, unspecified Category: Medical Plan: 43-year-old male with gout presents for follow-up. On allopurinol 300 mg daily, colchicine 1.2 mg daily and received 1st dose of Ilaris about 5 weeks ago. Patient states that his gout is much better overall. Has not had any significant flare-ups. He would have mild short-lived flare-ups. Has not used prednisone in over a month. Has been going to PT for his biceps tendon rupture. States that his strength has improved. Increase allopurinol to 400 mg daily. Continue colchicine 1.2 mg daily Plan to do another Ilaris injection in 6 weeks, and consider repeating it next visit in 3 months Lab work before next visit in 3 months (2) Rupture of right biceps tendon: Code(s): S46.211A - Strain of muscle, fascia and tendon of other parts of biceps, right arm, initial encounter Category: Medical Qualifiers: Encounter type: initial encounter Qualified Code(s): S46.211A - Strain of muscle, fascia and tendon of other parts of biceps, right arm, initial encounter Plan: Going to PT right now. Will be following up with his surgeon soon. States that he does not believe they will do surgery Plan I spent 27 minutes reviewing patient's chart, evaluating patient, ordering diagnostic workup, counseling patient and documenting in the chart Orders: Orders Comprehensive Met. Panel 3 Months M1A.09X0 - Idiopathic chronic gout, multiple sites, without tophus (tophi) C Reactive Protein 3 Months M1A.09X0 - Idiopathic chronic gout, multiple sites, without tophus (tophi) Complete Blood Count Auto Diff 3 Months M1A.09X0 - Idiopathic chronic gout, multiple sites, without tophus (tophi) Uric Acid 3 Months M1A.09X0 - Idiopathic chronic gout, multiple sites, without tophus (tophi) Medications: New allopurinol 100 mg PO DAILY 90 tabs 1RF Changed From colchicine 1.2 mg PO DAILY To colchicine 0.6 mg PO BID 180 caps 1RF Refilled allopurinol 300 mg PO DAILY 90 tabs 1RF Coding Level of Care Code Est Pt Level 4 (39380) Diagnoses Polyarticular gout M10.9 Rupture of right biceps tendon, initial encounter S46.211A Encounter type: initial encounter
[2024-03-19 08:43] VITALS: BP 170/100; PULSE 73; RESP 18; TEMP 36.9; O2SAT 99
== END 2024-03-19 09:30 | disposition home or self-care (01) ==
PROVIDERS: PCP Internal Medicine; Visit Provider Student in an Organized Health Care Education/Training Program
DX: M10.9 Gout, unspecified (principal); S46.211A Strain of muscle, fascia and tendon of other parts of biceps, right arm, initial encounter; M1A.09X0 Idiopathic chronic gout, multiple sites, without tophus (tophi)
CPT/HCPCS: 99214

== ENCOUNTER → 2024-03-19 08:40 | Outpatient (BNVA) | payer OTHER, SELFPAY | PROVIDERS: PCP Internal Medicine; Visit Provider Student in an Organized Health Care Education/Training Program | DX: M10.9 Gout, unspecified (principal); S46.211A Strain of muscle, fascia and tendon of other parts of biceps, right arm, initial encounter; Z79.899 Other long term (current) drug therapy | CPT/HCPCS: 96372 ==

== ENCOUNTER → 2024-05-06 08:16 | Outpatient (BNVA) | payer OTHER, SELFPAY | PROVIDERS: PCP Internal Medicine; Visit Provider Student in an Organized Health Care Education/Training Program ==

== ENCOUNTER 2024-05-22 08:01 | Outpatient (AMB) | payer OTHER, SELFPAY ==
--- NOTE | 2024-05-22 08:16 | MHC.OFFVIS ---
Intake Visit Reasons: Gout/ilaris inj Intake Note: Ilaris 150mg/ml injection given today on right upper arm. Lot #[id number], SN [id number], exp. 2024. Allergies hydrochlorothiazide Allergy (Intermediate, Verified 03/19/24 08:48) dizziness,rapid heart beat Medication List - Last Reconciled 05/22/24 by Emily Covarrubias MD allopurinol 300 mg PO DAILY allopurinol 100 mg PO DAILY colchicine 0.6 mg PO BID ibuprofen 800 mg (4 x 200 mg) PO Q6H PRN Ilaris (PF) (canakinumab (PF)) 150 mg subcut Q4W NS lisinopril 40 mg PO DAILY metoprolol succinate ER 100 mg PO DAILY omeprazole 20 mg PO DAILY PRN potassium chloride ER 10 mEq PO QAM HPI Comments Details: 43-year-old male with gout presents to clinic for Ilaris injection and FMLA paperwork. Reports overall improvement on Ilaris. Less frequent joint swelling and it does not last as long. [facility] Medical History Rotator cuff tear, right Rupture of right biceps tendon Rupture of left quadriceps muscle Hypertension Social History Household Members Other:: lives alone Housing: House Are you a primary plant health care technician to a significant other at home: No Do you presently have visiting nurse or other home services: No 75 years or older and lives alone: No Alcohol intake: current Alcohol intake frequency: a few times a month Alcohol type: beer Patient Tobacco Use Status: Former Tobacco user Years Smoked: chews tobacco e-Cigarette/Vaping Use: Never Used service: No Current occupational status: employed 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 Review of Systems Musc Denies arthralgias, Denies joint swelling and Denies stiffness Physical Exam Const General: cooperative and no acute distress Nutritional Appearance: obese morbidly obese Orientation/consciousness: patient oriented x3 Limitations: no limitations HEENT Head: Yes normocephalic and Yes atraumatic Resp Effort & Inspection: normal respiratory effort and able to speak in complete sentences Skin General skin exam: no rashes or lesions noted Neuro General: patient oriented x3 Assessment & Plan Assessment & Plan (1) Gout: Code(s): M10.9 - Gout, unspecified Category: Medical Qualifiers: Chronicity: chronic Gout etiology: idiopathic Gout site: multiple sites Presence of tophus: without tophus Qualified Code(s): M1A.09X0 - Idiopathic chronic gout, multiple sites, without tophus (tophi) (2) Polyarticular gout: Code(s): M10.9 - Gout, unspecified Category: Medical Plan: 43-year-old male with gout presents to clinic for Ilaris injection and FMLA work. FMLA paperwork completed in clinic today. Labs before next visit in 1 month Plan I spent 12 minutes reviewing patient's chart, evaluating patient, counseling patient and documenting in the chart Orders: Orders AMB Canakinumab Injection Patient Supplied (NC) Today M1A.09X0 - Idiopathic chronic gout, multiple sites, without tophus (tophi) Medications: New canakinumab (PF) 150 mg subcut ONCE 1 mL 0RF M1A.09X0 - Idiopathic chronic gout, multiple sites, without tophus (tophi) Coding Level of Care Code Est Pt Level 3 (91431) Diagnoses Idiopathic chronic gout of multiple sites without tophus M1A.09X0 Chronicity: chronic Gout etiology: idiopathic Gout site: multiple sites Presence of tophus: without tophus Polyarticular gout M10.9
== END 2024-05-22 08:51 | disposition home or self-care (01) ==
PROVIDERS: PCP Internal Medicine; Visit Provider Student in an Organized Health Care Education/Training Program
DX: M1A.09X0 Idiopathic chronic gout, multiple sites, without tophus (tophi) (principal)
CPT/HCPCS: 99214

== ENCOUNTER → 2024-05-22 08:01 | Outpatient (BNVA) | payer OTHER, SELFPAY | PROVIDERS: PCP Internal Medicine; Visit Provider Student in an Organized Health Care Education/Training Program ==

== ENCOUNTER 2024-08-04 13:27 | Outpatient (REF) | payer OTHER, SELFPAY ==
[2024-08-04 13:39] LABS: MANUAL DIFF FLAG NO
[2024-08-04 13:53] LABS: Basophils Absolute Auto 0.1 X10*3/uL (0.0-0.2); Basophils Percent Auto 0.8 % (0-2); Eosinophils Absolute Auto 0.1 X10*3/uL (0.0-0.4); Eosinophils Percent Auto 2.2 % (0-4); Hematocrit 40.3 % (42.0-52.0); Hemoglobin 13.6 g/dl (14.0-18.0); Imm Gran Abs Auto 0.02 X10*3/uL (0.00-0.03); Imm Gran Pct Auto 0.3 % (0.0-0.4); Lymphocytes Percent Auto 31.8 % (20-40); Mean Corpuscular HGB Conc 33.7 g/dl (31.0-36.0); Mean Corpuscular Hemoglobin 30.3 pg (27.0-33.0); Mean Corpuscular Volume 89.8 fL (80.0-98.0); Monocytes Absolute Auto 0.6 X10*3/uL (0.1-1.2); Monocytes Percent Auto 8.7 % (2-11); Neutrophils Absolute Auto 3.6 x10*3/uL (2.0-8.3); Neutrophils Percent Auto 56.2 % (45-73); Platelet Count 243 X10*3/uL (160-400); Red Blood Count 4.49 X10*6/uL (4.60-5.80); Red Cell Distribution Width 14.1 % (11.0-16.0); White Blood Count 6.3 X10*3/uL (4.8-10.8)
[2024-08-04 14:40] LABS: Alanine Aminotransferase 24 U/L (0-40); Albumin Level 4.4 g/dL (3.5-5.0); Alkaline Phosphatase 66 U/L (39-117); Anion Gap 14 (12-20); Aspartate Amino Transferase 20 U/L (5-37); Bilirubin Total 0.7 mg/dL (0.0-1.0); Blood Urea Nitrogen 15 mg/dL (9-16); Calcium 9.4 mg/dL (8.4-10.2); Carbon Dioxide 26 mmol/L (22-29); Chloride 106 mmol/L (96-108); Estimated Glomerular Filt Rate > 60; Glucose Random 100 mg/dL (60-115); Potassium 3.5 mmol/L (3.3-5.1); Sodium 142 mmol/L (135-145); Total Protein 7.1 g/dL (6.5-8.0); Uric Acid 7.4 mg/dL (3.4-7.0)
== END 2024-08-04 13:28 | disposition home or self-care (01) ==
LOC: HO.LAB 13:27
PROVIDERS: PCP Internal Medicine; Visit Provider Student in an Organized Health Care Education/Training Program
DX: M1A.09X0 Idiopathic chronic gout, multiple sites, without tophus (tophi) (principal)
CPT/HCPCS: 36415; 80053; 84550; 85025; 86140